=== PATIENT | female | born 1960 | race Caucasian/White ===

== ENCOUNTER → 2022-01-27 | Day surgery (SDC) | payer OTHER ==
[~2022-01-27] VITALS: Ht 165.1 cm; Wt 92.1 kg
[~2022-01-27] MED LIST: ATORVASTATIN CA80 MG PO; CLONAZEPAM 1MG T1 MG PO; COZAAR100 MG PO; DOXEPIN HCL100 MG PO; DULOXETINE HCL60 MG PO; ESTRADIOL1 MG PO; FIORICET1 EACH PO; FLEXERIL10 MG PO; GLIMEPIRIDE4 MG PO; LOPRESSOR50 MG PO; MEDROL 4MG DOSEP4 MG PO; METOCLOPRAMIDE10 MG PO; PERCOCET 10/321 EACH PO; PROTONIX 40MG T40 MG PO; SKELAXIN800 MG PO; SYNTHROID200 MCG PO; TOPIRAMATE100 MG PO
[2022-01-27 11:51] LABS: HCT 41.7 % (37.0-47.0); HGB 14.1 g/dl (12.5-16.0); MCH 28.8 pg (25.0-31.0); MCHC 33.8 g/dL (32.0-36.0); MCV 85.3 fL (78.0-100.0); RBC 4.89 M/uL (4.20-5.40); RDW 12.5 % (11.5-14.0); WBC 7.5 K/uL (4.0-10.5)
[2022-01-27 12:00] LABS: ALBUMIN 3.5 g/dL (3.4-5.0); ALKALINE PHOSHATASE 172 U/L (46-116); ALT <6 U/L (14-59); AST 16 U/L (15-37); BILIRUBIN - TOTAL 0.3 mg/dL (0.2-1.0); BUN 25 mg/dL (7-18); BUN/CREAT RATIO (CALC) 13.5 RATIO; CHLORIDE 102 mmol/L (98-107); CO2 (BICARBONATE) 30 mmol/L (21-32); CREATININE 1.85 mg/dL (0.51-0.95); GLOBULIN (CALCULATION) 3.3 g/dL; GLUCOSE 155 mg/dL (74-106); POTASSIUM 4.1 mmol/L (3.5-5.1); TOTAL PROTEIN 6.8 g/dL (6.4-8.2); TOTAL T4 11.8 ug/dL (4.7-13.3)
== END | disposition home or self-care (01) ==
LOC: FAS 10:39
PROVIDERS: Surgery
DX: K22.2 Esophageal obstruction (principal); K29.70 Gastritis, unspecified, without bleeding; K31.9 Disease of stomach and duodenum, unspecified; E11.9 Type 2 diabetes mellitus without complications; F41.9 Anxiety disorder, unspecified; I12.9 Hypertensive chronic kidney disease with stage 1 through stage 4 chronic kidney disease, or unspecified chronic kidney disease; N18.30 Chronic kidney disease, stage 3 unspecified; E89.0 Postprocedural hypothyroidism; F32.A Depression, unspecified; E78.5 Hyperlipidemia, unspecified; Z87.891 Personal history of nicotine dependence
CPT/HCPCS: 36415; 80053; 84436; 84439; 84443; 84481; C1726; J2250; J2704; J7120

== ENCOUNTER 2022-02-17 09:13 | Day surgery (SDCO) | payer OTHER ==
[~2022-02-17] VITALS: Ht 165.1 cm; Wt 91.9 kg
[2022-02-17 09:59] LABS: BASOPHIL 0.8 % (0-2); EOSINOPHIL 1.4 % (0-5); HCT 42.8 % (37.0-47.0); HGB 14.7 g/dl (12.5-16.0); LYMPHOCYTE 15.9 % (15-48); MCH 28.7 pg (25.0-31.0); MCHC 34.3 g/dL (32.0-36.0); MCV 83.4 fL (78.0-100.0); MONOCYTE 7.9 % (0-12); MPV 10.8 fL (6.0-9.5); NEUTROPHIL 73.9 % (41-80); NRBC 0; PLT 226 K/uL (150-400); RBC 5.13 M/uL (4.20-5.40); RDW 12.7 % (11.5-14.0); WBC 7.3 K/uL (4.0-10.5)
[2022-02-17 10:04] LABS: BUN/CREAT RATIO (CALC) 12.9 RATIO; CREATININE 1.78 mg/dL (0.51-0.95); POTASSIUM 3.1 mmol/L (3.5-5.1)
[2022-02-17 10:58] LABS: BILIRUBIN NEGATIVE (NEGATIVE); BLOOD NEGATIVE Ery/uL (NEGATIVE); CLARITY CLEAR (CLEAR); COLOR YELLOW (YELLOW); GLUCOSE (U) NORMAL (NORMAL); LEUKOCYTES 3+ Leu/uL (NEGATIVE); NITRITE NEGATIVE (NEGATIVE); PROTEIN NEGATIVE (NEGATIVE); SPECIFIC GRAVITY <=1.005 (1.001-1.030); UROBILINOGEN 0.2 mg/dL (0.2-1.0)
[2022-02-17 11:23] LABS: BACTERIA 1+; URINARY WBC 20-50
[2022-02-17 12:37] LABS: INR 1.03 (0.9-1.2); PROTHROMBIN TIME 12.9 SECONDS (11.8-13.4); PTT 26.3 SECONDS (24.4-34.7)
[2022-02-17] MEDS ORDERED: PERCOCET 10-321 EACH PO (17:57)
[2022-02-17] MEDS ORDERED: GLUCOTROL5 MG PO (18:40)
[2022-02-17] MEDS ORDERED: BUSPAR5 MG PO (18:43)
[2022-02-17] MEDS ORDERED: NORVASC5 MG PO (18:45)
[2022-02-17] MEDS ORDERED: MINIPRES1 MG PO (18:49)
[2022-02-17] MEDS ORDERED: ROPINIROLE HCL1 MG PO (18:50)
[2022-02-17] MEDS ORDERED: HYDROCHLOROTHIA25 M1 PO (18:52)
[2022-02-17] MEDS ORDERED: LYRICA50 MG PO (18:53)
[2022-02-17] MEDS ORDERED: SINEQUAN50 MG PO (23:13)
[2022-02-18 06:22] LABS: EOSINOPHIL 3.1 % (0-5); HCT 42.3 % (37.0-47.0); HGB 13.7 g/dl (12.5-16.0); LYMPHOCYTE 29.5 % (15-48); MCH 28.2 pg (25.0-31.0); MCHC 32.4 g/dL (32.0-36.0); MCV 87.2 fL (78.0-100.0); MPV 10.9 fL (6.0-9.5); NEUTROPHIL 55.1 % (41-80); NRBC 0; PLT 252 K/uL (150-400); RBC 4.85 M/uL (4.20-5.40); RDW 13.1 % (11.5-14.0)
[2022-02-18 06:45] LABS: BUN/CREAT RATIO (CALC) 11.1 RATIO; CREATININE 1.99 mg/dL (0.51-0.95); POTASSIUM 3.7 mmol/L (3.5-5.1)
[2022-02-18] MEDS ORDERED: CARDIZEM CD180 MG PO (10:54)
[2022-02-18] MEDS ORDERED: CEFDINIR300 MG PO (12:02)
[2022-02-18] MEDS ORDERED: DOXYCYCLINE MO100 M1 PO (12:05)
[2022-02-18 12:45] LABS: FT4 (FREE T4) 1.1 ng/dL (0.76-1.46)
--- NOTE | 2022-02-18 13:04 | NUR ---
02/18 Ms. Murcia lives in a [id number] suite at the home of her son. She is independent in the home and community. No discharge planning needs are anticipated.
== END 2022-02-18 16:15 | disposition home or self-care (01) ==
LOC: FER 09:13 → FTCU 14:07
PROVIDERS: Emergency Medicine; ADMIT Internal Medicine
DX: I49.5 Sick sinus syndrome (principal); R07.89 Other chest pain; N30.00 Acute cystitis without hematuria; E87.6 Hypokalemia; I12.9 Hypertensive chronic kidney disease with stage 1 through stage 4 chronic kidney disease, or unspecified chronic kidney disease; E11.22 Type 2 diabetes mellitus with diabetic chronic kidney disease; N18.4 Chronic kidney disease, stage 4 (severe); E03.9 Hypothyroidism, unspecified; K21.9 Gastro-esophageal reflux disease without esophagitis; F41.9 Anxiety disorder, unspecified; F32.A Depression, unspecified; Z88.1 Allergy status to other antibiotic agents; Z88.5 Allergy status to narcotic agent; Z88.8 Allergy status to other drugs, medicaments and biological substances; Z87.891 Personal history of nicotine dependence
CPT/HCPCS: 36415; 36600; 71046; 80048; 81001; 82803; 82962; 83036; 83735; 83880; 84439; 84443; 84484; 85025; 85610; 85730; 87088; 93005; 94010; G0378; J1644

== ENCOUNTER 2022-02-23 15:19 | Emergency (ER) | payer OTHER ==
[~2022-02-23 15:19] MED LIST changes: +BUSPAR5 MG PO; +CARDIZEM CD180 MG PO; +CEFDINIR300 MG PO; +DOXYCYCLINE MO100 M1 PO; +GLUCOTROL5 MG PO; +HYDROCHLOROTHIA25 M1 PO; +LYRICA50 MG PO; +MINIPRES1 MG PO; +NORVASC5 MG PO; +PERCOCET 10-321 EACH PO; +ROPINIROLE HCL1 MG PO; +SINEQUAN50 MG PO
== END 2022-02-23 17:15 | disposition home or self-care (01) ==
LOC: FER 15:19
DX: L23.1 Allergic contact dermatitis due to adhesives (principal); T50.905A Adverse effect of unspecified drugs, medicaments and biological substances, initial encounter; I10 Essential (primary) hypertension; E11.9 Type 2 diabetes mellitus without complications; Z88.1 Allergy status to other antibiotic agents; Z88.8 Allergy status to other drugs, medicaments and biological substances
CPT/HCPCS: 99282